=== PATIENT | female | born 1985 | race Caucasian/White ===

== ENCOUNTER → 2018-03-18 | Outpatient (CLI) | payer OTHER ==
[~2018-03-18] MED LIST: ASCO-191 PO; BCP; FAM20 PO; HYDR473S4 PO; LOR5 PO; LORA-633 PO; NICO1PAT86 TD; NO RTN MEDS; NORG1TAB74 PO; ONDA4TAB PO; PAN40 PO; PRO25 PO; RANI150C14 PO; RIZA10TA22 PO; VENL75CA58 PO
== END ==
LOC: LAB 16:12
PROVIDERS: ATTEND Otolaryngology
DX: D10.30 Benign neoplasm of unspecified part of mouth (principal)
CPT/HCPCS: 88305; 88342